=== PATIENT | female | born 1980 | race Hispanic/Latino ===

== ENCOUNTER 2017-06-18 19:46 | Emergency (ER) | payer OTHER ==
[~2017-06-18] VITALS: Ht 154.9 cm; Wt 58.6 kg
[2017-06-18] MEDS ORDERED: MOTRIN800 MG PO (21:21)
[2017-06-18] MEDS ORDERED: NORCO 5/3251 TABLET PO (21:21)
[2017-06-18 22:00] VITALS: BP 123/72
== END 2017-06-18 22:00 | disposition home or self-care (01) ==
LOC: EME 19:46
DX: S83.512A Sprain of anterior cruciate ligament of left knee, initial encounter (principal); M25.362 Other instability, left knee; V00.321A Fall from snow-skis, initial encounter; X50.1XXA Overexertion from prolonged static or awkward postures, initial encounter; Y93.23 Activity, snow (alpine) (downhill) skiing, snowboarding, sledding, tobogganing and snow tubing
CPT/HCPCS: 73564; 99281; 99284